=== PATIENT | male | born 1975 | race Caucasian/White ===

== ENCOUNTER 2021-01-24 12:26 | Observation (INO) | payer OTHER ==
[2021-01-24] MEDS ORDERED: KETOROLAC 15 MG/ML 1 ML VIAL IVP STA (13:06)
[2021-01-24] MEDS ORDERED: DIAZEPAM 5 MG/ML 2 ML INJ IVP STA (13:06)
[2021-01-24] MEDS ORDERED: HYDROmorphone 0.5 MG/0.5 ML SYRINGE IVP STA (13:06)
--- NOTE | 2021-01-24 13:23 | ED ---
General Adult HPI - General Chief complaint: Back Pain/Injury Stated complaint: low back, leg pain Time Seen by Provider: 01/24/21 12:53 Source: patient, RN notes reviewed, old records reviewed Mode of arrival: ambulatory Limitations: no limitations - History of Present Illness Initial comments: 45-year-old male presents for evaluation of low back pain and bilateral leg pain and numbness. Patient had previous history of spinal surgery he believes in 2008 at outside hospital. He states that while at work on Saturday he had twisted to move apart and felt a sudden pop in his back with numbness down both legs. This has worsened over the weekend. He was seen at an outside hospital and reportedly had CT of the lumbar spine. He was told to follow with his primary care physician but has been unable to ambulate secondary to pain. He's developed a burning sensation on his inner thighs. He denies bowel or bladder incontinence. Denies fever. - Related Data Home Medications Medication Instructions Recorded Confirmed Naproxen 500 mg PO Q12H PRN 01/24/21 01/24/21 methocarbamoL [Robaxin] 500 mg PO Q12H PRN 01/24/21 01/24/21 methylPREDNISolone [Medrol Dose See Taper PO DAILY 01/24/21 01/24/21 Pack] Allergies Allergy/AdvReac Type Severity Reaction Status Date / Time No Known Allergies Allergy Verified 01/24/21 14:13 Review of Systems ROS Statement: Those systems with pertinent positive or pertinent negative responses have been documented in the HPI. ROS Other: All systems not noted in ROS Statement are negative. Past Medical History Additional Past Medical History / Comment(s): factor 5 History of Any Multi-Drug Resistant Organisms: None Reported Past Surgical History: Hernia Repair Additional Past Surgical History / Comment(s): back surgery 2011, left knee surgery. Smoking Status: Current every day smoker Past Alcohol Use History: Occasional Past Drug Use History: None Reported General Exam Limitations: no limitations General appearance: alert, in no apparent distress Head exam: Present: atraumatic, normocephalic Eye exam: Present: normal appearance ENT exam: Present: normal exam Neck exam: Present: normal inspection. Absent: tenderness, meningismus Respiratory exam: Present: normal lung sounds bilaterally. Absent: respiratory distress Cardiovascular Exam: Present: regular rate, normal rhythm GI/Abdominal exam: Present: soft. Absent: distended, tenderness Extremities exam: Present: normal inspection, normal capillary refill. Absent: pedal edema Neurological exam: Present: alert, oriented X3, CN II-XII intact, other (Bilateral lower extremity pain with any movement.) Psychiatric exam: Present: normal affect, normal mood Skin exam: Present: warm, dry, intact. Absent: cyanosis, diaphoretic Course Vital Signs 01/24/21 12:42 Temperature 97.9 F Pulse Rate 74 Respiratory 19 Rate Blood Pressure 166/65 O2 Sat by Pulse 97 Oximetry - Reevaluation(s) Reevaluation #1: 01/24/21 13:23 Records are being requested from [facility]. Reevaluation #2: 01/24/21 14:27 Postvoid residual pending. Medical Decision Making - Medical Decision Making 45-year-old male presenting for reevaluation of low back pain, radiating symptoms into both legs. No bowel or bladder incontinence. Symptoms have been present for the last 5 days. He was seen at an outside hospital and had CT imaging of the spine. His symptoms persist and despite medication he is not improving. He is having numbness in both legs. Outside hospital had recommended MRI for this patient is been unable to see a primary care physician or orthopedic surgeon. Given the worsening symptoms he will be admitted for both pain control, orthopedic evaluation and MRI of the lumbar spine. This has been ordered. I discussed case with the admitting physician Dr. Solomon - Lab Data Result diagrams: 01/24/21 13:44 01/24/21 13:44 Lab Results 01/24/21 01/24/21 Range/Units 13:44 13:44 WBC 10.8 H (3.8-10.6) k/uL RBC 4.84 (4.30-5.90) m/uL Hgb 15.0 (13.0-17.5) gm/dL Hct 45.1 (39.0-53.0) % MCV 93.3 (80.0-100.0) fL MCH 30.9 (25.0-35.0) pg MCHC 33.2 (31.0-37.0) g/dL RDW 13.0 (11.5-15.5) % Plt Count 311 (150-450) k/uL MPV 7.7 Neutrophils % 66 % Lymphocytes % 22 % Monocytes % 7 % Eosinophils % 2 % Basophils % 0 % Neutrophils # 7.1 (1.3-7.7) k/uL Lymphocytes # 2.4 (1.0-4.8) k/uL Monocytes # 0.8 (0-1.0) k/uL Eosinophils # 0.2 (0-0.7) k/uL Basophils # 0.1 (0-0.2) k/uL Sodium 137 (137-145) mmol/L Potassium 4.7 (3.5-5.1) mmol/L Chloride 109 H (98-107) mmol/L Carbon Dioxide 17 L (22-30) mmol/L Anion Gap 11 mmol/L BUN 11 (9-20) mg/dL Creatinine 0.68 (0.66-1.25) mg/dL Est GFR (CKD-EPI)AfAm >90 (>60 ml/min/1.73 sqM) Est GFR (CKD-EPI)NonAf >90 (>60 ml/min/1.73 sqM) Glucose 99 (74-99) mg/dL Calcium 9.4 (8.4-10.2) mg/dL Total Bilirubin 0.5 (0.2-1.3) mg/dL AST 22 (17-59) U/L ALT 22 (4-49) U/L Alkaline Phosphatase 45 (38-126) U/L Total Protein 7.3 (6.3-8.2) g/dL Albumin 4.4 (3.5-5.0) g/dL Disposition Clinical Impression: Mechanical back pain, Lumbar radiculopathy Narrative: Rule out Disposition: ADMITTED IP TO THIS [facility] Condition: Stable Is patient prescribed a controlled substance at d/c from ED?: No Referrals: None,Stated [Primary Care Provider] - 1-2 days Decision to Admit Reason: Admit from EC Decision Date: 01/24/21 Decision Time: 14:29
[2021-01-24 14:20] LABS: Basophils # (A) 0.1 k/uL (0-0.2); Basophils % (A) 0 %; Eosinophils # (A) 0.2 k/uL (0-0.7); Eosinophils % (A) 2 %; HCT 45.1 % (39.0-53.0); Lymphocytes # (A) 2.4 k/uL (1.0-4.8); Lymphocytes % (A) 22 %; MCH 30.9 pg (25.0-35.0); MCHC 33.2 g/dL (31.0-37.0); MCV 93.3 fL (80.0-100.0); Mean Platelet Volume 7.7; Monocytes # (A) 0.8 k/uL (0-1.0); Monocytes % (A) 7 %; Neutrophils # (A) 7.1 k/uL (1.3-7.7); Neutrophils % (A) 66 %; Platelet Count 311 k/uL (150-450); RBC 4.84 m/uL (4.30-5.90); WBC 10.8 k/uL (3.8-10.6)
[2021-01-24] MEDS ORDERED: DEXAMETHASONE SOD PHOSPHATE 10 MG/ML 1 ML VIAL IV STA (14:23)
[2021-01-24] MEDS ORDERED: NALOXONE 0.4 MG/ML 1 ML VIAL IV PRN (14:24)
[2021-01-24 14:26] LABS: ALT 22 U/L (4-49); AST 22 U/L (17-59); African American GFR (CKD) >90 (>60 ml/min/1.73 sqM); Albumin 4.4 g/dL (3.5-5.0); Alkaline Phosphatase 45 U/L (38-126); Anion Gap 11 mmol/L; Blood Urea Nitrogen 11 mg/dL (9-20); Calcium 9.4 mg/dL (8.4-10.2); Carbon Dioxide 17 mmol/L (22-30); Chloride 109 mmol/L (98-107); Glucose 99 mg/dL (74-99); Non-African American GFR(CKD) >90 (>60 ml/min/1.73 sqM); Potassium 4.7 mmol/L (3.5-5.1); Sodium 137 mmol/L (137-145); Total Bilirubin 0.5 mg/dL (0.2-1.3); Total Protein 7.3 g/dL (6.3-8.2)
[2021-01-24] MEDS: IBUPROFEN 400 MG TAB PO PRN (14:34)
[2021-01-24] MEDS: ACETAMINOPHEN TAB 325 MG TAB PO PRN (14:34)
[2021-01-24 14:46] LABS: Appearance,Urine Clear (Clear); Bilirubin,Urine Negative (Negative); Blood,Urine Negative (Negative); Color,Urine Light Yellow; Glucose,Urine (UA) Negative (Negative); Ketones,Urine Negative (Negative); Leukocyte Esterase,Urine Negative (Negative); Nitrite,Urine Negative (Negative); PH, Urine 5.5 (5.0-8.0); Protein,Urine Negative (Negative); Specific Gravity,Urine 1.006 (1.001-1.035); Urobilinogen,Urine <2.0 mg/dL (<2.0)
[2021-01-24] MEDS: HYDROmorphone 0.5 MG/0.5 ML SYRINGE IVP PRN ×2 (16:54→19:57)
--- NOTE | 2021-01-24 19:19 | P.HPIM ---
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 The patient reports that he was in his usual state of health until this past Saturday when while at work he tried to move something and felt a pop in his lower back with immediate bilateral lower extremity weakness. He reported that the weakness was worse on the right side and mild on the left. He subsequently went home and tried to rest over the weekend but reports that his weakness did not improve much, and that he developed lower back pain which is now radiating down into both of his mid-thigh, burning in nature. He denied difficulty urinating or passing bowel movement. He reports that the lower back pain is currently out of 6 out of 10 at rest and gets worse with movement. Review of systems: Pertinent positives and negatives as discussed in HPI, a complete review of sys tems was performed and all other systems are negative. Physical examination: General: non toxic, no distress, appears at stated age, obese Derm: no unusual rashes/lesions no unusual ecchymoses, warm, dry Head: atraumatic, normocephalic, symmetric Eyes: EOMI, no lid lag, anicteric sclera, pupils equal round reactive to light ENT: Nose and ears atraumatic, no thrush, no pharyngeal erythema Neck: No thyromegaly, no cervical lymphadenopathy, trachea midline, supple Mouth: no lip lesion, mucus membranes moist Cardiovascular: S1S2 reg, no murmur, positive posterior tibial pulse bilateral, no edema, capillary refill less than 2 seconds Lungs: CTA bilateral, no rhonchi, no rales , no accessory muscle use Abdominal: soft, nontender to palpation, no guarding, no appreciable organomegaly, normal bowel sounds Ext: no gross muscle atrophy, muscle strength 3 out of 5 of RLE and 4/5 of LLE, 5/5 in brenden UEs, no contractures, lumbar spinal tenderness noted Neuro: CN II-XI grossly intact, diminished light touch of RLE with intact else- where, finger to nose within normal limits, Psych: Alert, oriented, appropriate affect Assessment/plan Lower back pain, likely acutely herniated disc -MRI results pending -Orthospine consulted -Strict bedrest -Status post Decadron -Pain control DVT prophylaxis -IPCDs The patient is admitted with an anticipated less than 2 midnight stay for evaluation of lower back pain CODE STATUS: Full Code Discussed with: Patient Anticipated discharge date: in am Anticipated discharge place: Home Past Medical History Additional Past Medical History / Comment(s): factor 5 - History of Any Multi-Drug Resistant Organisms: None Reported Past Surgical History: Hernia Repair Additional Past Surgical History / Comment(s): back surgery 2010, left knee betancourt rgery. Past Anesthesia/Blood Transfusion Reactions: No Reported Reaction Smoking Status: Former smoker - Past Family History Mother Family Medical History: Cancer Additional Family Medical History / Comment(s): throat cancer Father Family Medical History: Cancer Additional Family Medical History / Comment(s): throat cancer Medications and Allergies Home Medications Medication Instructions Recorded Confirmed Type Naproxen 500 mg PO Q12H PRN 01/24/21 01/24/21 History methocarbamoL [Robaxin] 500 mg PO Q12H PRN 01/24/21 01/24/21 History methylPREDNISolone [Medrol Dose See Taper PO DAILY 01/24/21 01/24/21 History Pack] Allergies Allergy/AdvReac Type Severity Reaction Status Date / Time No Known Allergies Allergy Verified 01/24/21 14:13 Physical Exam Vitals: Vital Signs Temp Pulse Pulse Resp BP BP Pulse Ox 01/24/21 16:00 17 01/24/21 15:58 98.1 F 58 L 17 119/79 97 01/24/21 12:42 97.9 F 74 19 166/65 97 Intake and Output 01/24/21 01/24/21 01/24/21 06:59 14:59 22:59 Output Total 66 Balance -66 Output: Post Void Residual 66 Other: Weight 94.801 kg 94.801 kg Results CBC & Chem 7: 01/24/21 13:44 01/24/21 13:44 Labs: Abnormal Lab Results - Last 24 Hours (Table) 01/24/21 01/24/21 Range/Units 13:44 13:44 WBC 10.8 H (3.8-10.6) k/uL Chloride 109 H (98-107) mmol/L Carbon Dioxide 17 L (22-30) mmol/L Thrombosis Risk Factor Assmnt - Choose All That Apply Each Factor Represents 1 point: Age 41-60 years, Medical pt on bed rest, Obesity (BMI >25) Other Risk Factors: Yes Each Risk Factor Represents 3 Points: Positive Factor V Leiden Other congenital or acquired thrombophilia - If yes, enter type in comment: No Thrombosis Risk Factor Assessment Total Risk Factor Score: 6 Thrombosis Risk Factor Assessment Level: High Risk
--- NOTE | 2021-01-24 19:35 | MR ---
EXAMINATION TYPE: MR lumbar spine wo con DATE OF EXAM: 01/24/2021 COMPARISON: None HISTORY: Low back pain, rule out cord compression Multiplanar multiecho imaging of the lumbar spine without contrast. There is metal artifact from posterior fusion surgery at L5-S1. There is a few millimeter subluxation of L5 in relation to S1. There is no compression fracture. Lumbar disc spaces are fairly normal. The re is no evidence of any significant spinal stenosis. There is no lumbar paraspinal mass. There is sm all posterior disc bulging at L2-3. There is similar bulging at T12-L1. There is developmentally adeq uate spinal canal. No spinal stenosis. There is some narrowing of the lumbar neural foramina bilatera lly at L4-5 and L5-S1 due to facet arthropathy. IMPRESSION: Posterior fusion surgery. Minimal L5-S1 spondylolisthesis. No spinal stenosis. Normal neural foramina l narrowing bilaterally as above.
[2021-01-25] MEDS ORDERED: ASPIRIN 81 MG PO STA (00:20)
[2021-01-25] MEDS: NITROGLYCERIN SL TABS 0.4 MG TAB SUBLINGUAL PRN ×2 (00:35→00:42)
--- NOTE | 2021-01-25 01:01 | P.PN ---
Progress Note - Text Progress Note Date: 01/25/21 patient woke up from sleep complaining of sudden onset chest pain , centrl pressure, radiate to right side. worse with breathing, feeling anxious , no dizziness, palpitations or diaphoresis lungs clear to auscultation heart normal S1 S2 no leg edema BP 180s systolic hr 90s patient quit smoking 2 months ago, denies heavy alcohol , does smoke marijuana occasionally reports positive family history of premature CAD in his father denies any personal cardiac history plan rule out ACS EKG normal sinus rhythm , no acute ST changes, q wave in lead I check trops q3hr nitro sl aspirin 325 monitor vital signs PRN clonidine 0.2 mg for SBP >180
[2021-01-25] MEDS ORDERED: cloNIDine HCL 0.2 MG TAB PO PRN (01:08)
[2021-01-25] MEDS: HYDROmorphone 0.5 MG/0.5 ML SYRINGE IVP PRN ×6 (02:00→23:41)
[2021-01-25] MEDS ORDERED: ASPIRIN 325 MG TAB PO SCH (09:00)
--- NOTE | 2021-01-25 10:37 | P.CRDCN ---
History of Present Illness Consult date: 01/25/21 History of present illness: HISTORY OF PRESENT ILLNESS: This is a 45-year-old male with a past medical history significant for factor V Leiden (not on blood thinners due to cost per patient), degenerative disc disease with previous fusion, nicotine dependence, and marijuana use. Patient does not follow with a laboratory chief. We have been asked to see the patient in consultation for chest pain. Patient examined at the bedside. The patient states he was at work when he bent over at a machine and felt something in his back pop. He states his right leg went numb afterwords and he has decreased mobility of his right leg. The patient states he woke up in the middle of the night with right sided chest pain. Denies SOB. Denies radiation of the pain. The pain was somewhat worse with deep inspiration and chest wall palpation. The patient currently denies chest pain or pressure. He reports a family history of coronary artery disease and states his dad had a heart attack when he was in his 30s or 40s. EKG reveals sinus mechanism with nonspecific ST-T wave changes Laboratory data: WBC 10.8. Hemoglobin 15.0. Platelet count 311. Sodium 137. Potassium 4.7. BUN 11. Creatinine 0.68. Troponin negative 3. Current home cardiac medications include none REVIEW OF SYSTEMS: At the time of my exam: CONSTITUTIONAL: Denies fever or chills. HEENT: Denies blurred vision, vision changes, or eye pain. Denies hemoptysis CARDIOVASCULAR: Denies chest pain. Denies orthopnea. Denies PND. Denies palpitations RESPIRATORY: Denies shortness of breath. GASTROINTESTINAL: Denies abdominal pain. Denies nausea or vomiting. HEMATOLOGIC: Denies bleeding disorders. GENITOURINARY: Denies any blood in urine. SKIN: Denies pruitis. Denies rash. PHYSICAL EXAM: VITAL SIGNS: Reviewed. GENERAL: Well-developed in no acute distress. HEENT: Head is normocephalic. Pupils are equal, round. Sclerae anicteric. Mucous membranes of the mouth are moist. Neck supple. No JVD or thyromegaly LUNGS: Respirations even and unlabored. Lungs essentially clear to auscultation bilaterally. HEART: Regular rate and rhythm. S1 and S2 heard. ABDOMEN: Soft. Nondistended. Nontender. EXTREMITIES: Decreased range of motion of right lower extremity. No clubbing or cyanosis. Peripheral pulses intact. No lower extremity edema NEUROLOGIC: Awake and alert. Oriented x 3. ASSESSMENT: Back pain with numbness and decreased range of motion to lower extremities Chest pain, atypical, troponin negative 3 Factor V Leyden deficiency, not on blood thinners due to cost per patient Degenerative disc disease with previous fusion Nicotine dependence Marijuana use PLAN: An acute coronary event has been ruled out Obtain 2-D echo to assess cardiac structure and function Await orthopedic evaluation Recommend outpatient stress test Recommend abstinence from marijuana and nicotine Further recommendations pending patient's course Nurse practitioner note has been reviewed by physician. Signing provider agrees with the documented findings, assessment, and plan of care. Past Medical History Additional Past Medical History / Comment(s): factor 5 - History of Any Multi-Drug Resistant Organisms: None Reported Past Surgical History: Hernia Repair Additional Past Surgical History / Comment(s): back surgery 2010, left knee surgery. Past Anesthesia/Blood Transfusion Reactions: No Reported Reaction Smoking Status: Former smoker - Past Family History Mother Family Medical History: Cancer Additional Family Medical History / Comment(s): throat cancer Father Family Medical History: Cancer Additional Family Medical History / Comment(s): throat cancer Medications and Allergies Home Medications Medication Instructions Recorded Confirmed Type Naproxen 500 mg PO Q12H PRN 01/24/21 01/24/21 History methocarbamoL [Robaxin] 500 mg PO Q12H PRN 01/24/21 01/24/21 History methylPREDNISolone [Medrol Dose See Taper PO DAILY 01/24/21 01/24/21 History Pack] Allergies Allergy/AdvReac Type Severity Reaction Status Date / Time No Known Allergies Allergy Verified 01/24/21 14:13 Physical Exam Vitals: Vital Signs Temp Pulse Pulse Resp BP BP BP 01/25/21 08:06 96.4 F L 62 18 137/79 01/25/21 08:00 18 01/25/21 01:37 16 01/25/21 00:07 98.0 F 68 20 185/76 01/24/21 19:37 98.5 F 64 16 158/77 01/24/21 16:00 17 01/24/21 15:58 98.1 F 58 L 17 119/79 01/24/21 12:42 97.9 F 74 19 166/65 Pulse Ox 01/25/21 08:06 96 01/25/21 08:00 01/25/21 01:37 01/25/21 00:07 96 01/24/21 19:37 97 01/24/21 16:00 01/24/21 15:58 97 01/24/21 12:42 97 Intake and Output 01/24/21 01/25/21 01/25/21 22:59 06:59 14:59 Intake Total 180 Output Total 316 Balance -136 Intake: Oral 180 Output: Urine 250 Post Void Residual 66 Other: Voiding Method Urinal # Voids 1 2 Weight 94.801 kg Results 01/24/21 13:44 01/24/21 13:44 Cardiac Enzymes 01/24/21 01/25/21 01/25/21 Range/Units 13:44 00:35 03:45 AST 22 (17-59) U/L Troponin I <0.012 <0.012 (0.000-0.034) ng/mL 01/25/21 Range/Units 06:52 AST (17-59) U/L Troponin I <0.012 (0.000-0.034) ng/mL Coagulation 01/24/21 Range/Units 13:44 APTT 22.8 (22.0-30.0) sec CBC 01/24/21 Range/Units 13:44 WBC 10.8 H (3.8-10.6) k/uL RBC 4.84 (4.30-5.90) m/uL Hgb 15.0 (13.0-17.5) gm/dL Hct 45.1 (39.0-53.0) % Plt Count 311 (150-450) k/uL Comprehensive Metabolic Panel 01/24/21 Range/Units 13:44 Sodium 137 (137-145) mmol/L Potassium 4.7 (3.5-5.1) mmol/L Chloride 109 H (98-107) mmol/L Carbon Dioxide 17 L (22-30) mmol/L BUN 11 (9-20) mg/dL Creatinine 0.68 (0.66-1.25) mg/dL Glucose 99 (74-99) mg/dL Calcium 9.4 (8.4-10.2) mg/dL AST 22 (17-59) U/L ALT 22 (4-49) U/L Alkaline Phosphatase 45 (38-126) U/L Total Protein 7.3 (6.3-8.2) g/dL Albumin 4.4 (3.5-5.0) g/dL Current Medications Generic Name Dose Route Start Last Admin Trade Name Freq PRN Reason Stop Dose Admin Acetaminophen 650 mg 01/24/21 14:24 01/24/21 14:34 Acetaminophen Tab 325 Mg Tab PO 650 mg Q6HR PRN Administration Mild Pain or Fever > 100.5 Aspirin 81 mg 01/26/21 09:00 Aspirin 81 Mg PO DAILY ADRIA Clonidine 0.2 mg 01/25/21 01:08 Clonidine Hcl 0.2 Mg Tab PO TID PRN Blood Pressure - High Hydromorphone HCl 0.5 mg 01/24/21 14:24 01/25/21 07:42 Hydromorphone 0.5 Mg/0.5 Ml Syringe IVP 0.5 mg Q3HR PRN Administration Moderate Pain Ibuprofen 600 mg 01/24/21 14:24 01/24/21 14:34 Ibuprofen 400 Mg Tab PO 600 mg Q6HR PRN Administration Mild Pain or Fever > 100.5 Naloxone HCl 0.2 mg 01/24/21 14:24 Naloxone 0.4 Mg/Ml 1 Ml Vial IV Q2M PRN Opioid Reversal Nitroglycerin 0.4 mg 01/25/21 00:20 01/25/21 00:42 Nitroglycerin Sl Tabs 0.4 Mg Tab SUBLINGUAL 0.4 mg Q5M PRN Administration Chest Pain Intake and Output 01/24/21 01/25/21 01/25/21 22:59 06:59 14:59 Intake Total 180 Output Total 316 Balance -136 Intake: Oral 180 Output: Urine 250 Post Void Residual 66 Other: Voiding Method Urinal # Voids 1 2 Weight 94.801 kg 01/24/21 13:44 01/24/21 13:44
--- NOTE | 2021-01-25 13:36 | P.CNOR ---
History of Present Illness - [facility] Consult date: 01/25/21 Requesting physician: Uri Peacock Consult reason: low back pain History of present illness: Patient is a pleasant 45-year-old male who is seen and examined at bedside for further evaluation of his lumbar spine. He states this past 01/20/2021, he states he was performing his regular job when he was lifting some plastic and rotating when he got a sharp pain in his lumbar spine. He states since that time his symptoms have continued to worsen. He does get some generalized numbness in the lower extremities. His back pain is significant. He states he does have some ongoing intermittent pain that radiates into the right buttock, towards the right groin and anterior thigh to the right knee. He states he has a history of multiple surgical interventions at his left knee so he bears more weight on the right to compensate. He states this may be exacerbating some of his right lower extremity pain. He is known have previously undergone an L5-S1 lumbar fusion performed in 2008. He had been living in [place] from [id number] and recently moved to [place] in August 2020. He has not been following with pain management here in town. He states he was previously on disability but was able to come off of disability and resume working. He states he does have intermittent flares of back pain. He states currently his back pain is exacerbated with lifting his lower extremities. His pain is most significant near his right lower lumbar surgical site. He currently denies any lower extremity weakness bilaterally. He is eating and voiding without difficulty. He was able to have a bowel movement today. He is admitted and medicine. He has been consulted on by cardiology as well for evaluation of chest pain. Patient does have a history of factor V Leiden. Prior to my examination he has had MRI imaging of his lumbar spine. Patient does feel his pain has been better controlled during his admission. He was receiving dexamethasone which has been discontinued. He is currently on Dilaudid and ibuprofen for pain control. Past Medical History Additional Past Medical History / Comment(s): factor 5 - History of Any Multi-Drug Resistant Organisms: None Reported Past Surgical History: Hernia Repair Additional Past Surgical History / Comment(s): back surgery 2010, left knee surgery. Past Anesthesia/Blood Transfusion Reactions: No Reported Reaction Smoking Status: Former smoker - Past Family History Mother Family Medical History: Cancer Additional Family Medical History / Comment(s): throat cancer Father Family Medical History: Cancer Additional Family Medical History / Comment(s): throat cancer Medications and Allergies Home Medications Medication Instructions Recorded Confirmed Type Naproxen 500 mg PO Q12H PRN 01/24/21 01/24/21 History methocarbamoL [Robaxin] 500 mg PO Q12H PRN 01/24/21 01/24/21 History methylPREDNISolone [Medrol Dose See Taper PO DAILY 01/24/21 01/24/21 History Pack] Allergies Allergy/AdvReac Type Severity Reaction Status Date / Time No Known Allergies Allergy Verified 01/24/21 14:13 Physical Examination Physical exam: Patient is awake, alert, and oriented 3 Vital signs stable Good chest excursion with deep inspiration and expiration Abdomen soft nontender Examination of lumbar spine reveals skin is intact with no abrasions, lacerations, or bruises; no erythema, purulence or signs of infection Evidence of 2 well-healed incisions over the paraspinal muscles one on each side of the lower lumbar spine Increased low back pain with rolling over in bed Dorsiflexion, plantarflexion, and extensor hallucis longus positive sustained bilaterally Lower extremity strength 5/5 bilaterally with some difficulty with full range of motion of the left knee Evidence of multiple well-healed surgical incisions over the left knee Evidence of some deformity of the left knee Lasegue's test exacerbates low back pain No signs or symptoms of DVT; no calf pain No pain with internal and external rotation of the hips bilaterally Neurovascularly intact Results Pertinent studies: MRI of the lumbar spine taken on 01/24/2021: Metal artifact from posterior fusion surgery at L5-S1; L5-S1 slight spondylolisthesis; no evidence of significant spinal canal stenosis throughout the lumbar spine; no compression fracture deformity; lumbar disc space appears to be fairly well maintained; small posterior disc bulging L2-3; L4-5 and L5-S1 facet arthropathy resulting in some neural foraminal narrowing bilaterally - Labs Labs: Abnormal Lab Results - Last 24 Hours (Table) 01/24/21 01/24/21 Range/Units 13:44 13:44 WBC 10.8 H (3.8-10.6) k/uL Chloride 109 H (98-107) mmol/L Carbon Dioxide 17 L (22-30) mmol/L H & H 01/24/21 Range/Units 13:44 Hgb 15.0 (13.0-17.5) gm/dL Hct 45.1 (39.0-53.0) % Result Diagrams: 01/24/21 13:44 01/24/21 13:44 Assessment and Plan Assessment: Assessment: Acute on chronic low back pain Myofascial strain Generalized lower extremity numbness Right lower extremity radiculopathy History L5-S1 lumbar fusion L4-5 and L5-S1 facet arthropathy L5-S1 spondylolisthesis History of multiple surgeries at the left knee History of factor V Leiden Nicotine dependence Marijuana use (1) Acute exacerbation of chronic low back pain Current Visit: Yes Status: Acute Code(s): M54.50 - ; G89.29 - OTHER CHRONIC PAIN SNOMED Code(s): 914857060 (2) History of lumbar spinal fusion Current Visit: Yes Status: Acute Code(s): Z98.1 - ARTHRODESIS STATUS SNOMED Code(s): 61425506894320 (3) Lumbar back pain with radiculopathy affecting right lower extremity Current Visit: Yes Status: Acute Code(s): M54.16 - RADICULOPATHY, LUMBAR REGION SNOMED Code(s): 786452085 (4) Numbness and tingling Current Visit: Yes Status: Acute Code(s): R20.0 - ANESTHESIA OF SKIN; R20.2 - PARESTHESIA OF SKIN SNOMED Code(s): 082823258369 (5) Acute myofascial strain of lumbar region Current Visit: Yes Status: Acute Code(s): S39.012A - STRAIN OF MUSCLE, FASCIA AND TENDON OF LOWER BACK, INIT SNOMED Code(s): 860610809 (6) Lumbar facet arthropathy Current Visit: Yes Status: Acute Code(s): M47.816 - SPONDYLOSIS W/O MYELOPATHY OR RADICULOPATHY, LUMBAR REGION SNOMED Code(s): 089472762 (7) Facet arthropathy, lumbosacral Current Visit: Yes Status: Acute Code(s): M47.817 - SPONDYLS W/O MYELOPATHY OR RADICULOPATHY, LUMBOSACR REGION SNOMED Code(s): 815556159 (8) Spondylolisthesis, lumbosacral region Current Visit: Yes Status: Acute Code(s): M43.17 - SPONDYLOLISTHESIS, LUMBOSACRAL REGION SNOMED Code(s): 442372057 (9) Factor V Leiden Current Visit: Yes Status: Acute Code(s): D68.51 - ACTIVATED PROTEIN C RESISTANCE SNOMED Code(s): 916321800 (10) Nicotine dependence Current Visit: Yes Status: Acute Code(s): F17.200 - NICOTINE DEPENDENCE, UNSPECIFIED, UNCOMPLICATED SNOMED Code(s): 91463762 (11) Marijuana use Current Visit: Yes Status: Acute Code(s): F12.90 - CANNABIS USE, UNSPECIFIED, UNCOMPLICATED SNOMED Code(s): 755056170 (12) History of left knee surgery Current Visit: Yes Status: Acute Code(s): Z98.890 - OTHER SPECIFIED POSTPROCEDURAL STATES SNOMED Code(s): 828289784 Plan: Plan: 1. MRI imaging has been reviewed by myself and Dr. Giuseppe Pierson. Patient does have a history of previous lumbar fusion at L5-S1 performed in 2008. Recent MRI imaging does not show any evidence of significant herniated nucleus pulposus, canal stenosis, or compression fracture deformity. He does not do some chronic low back pain which has been exacerbated while at work on 01/20/2021. Since that time he has had worsening right-sided low back pain. States he does have generalized numbness down the lower extremities which is intermittent. He also has some chronic right lower extremity radiculopathy which can be intermittent with pain radiating into the right buttock, right groin, anterior thigh to the knee. Patient had lived in [place] and recently moved to [place]. He has not followed with pain management since his return to [place]. He has had some i mprovement of his symptoms during his admission to the hospital. We did discuss he could benefit with pain management consultation while he is in the hospital. We will plan for consultation with pain management. We discussed his MRI results in detail. We are not currently planning for surgical intervention in regards to his lumbar spine as we do not have indications in which surgical intervention would provide any significant improvement of his symptoms. Patient states he wishes to work through all conservative treatment options and would like to avoid any further surgical intervention. He was previously prescribed dexamethasone during his admission to the hospital. I did discuss with the patient he could benefit from a steroid taper in the outpatient setting if medicine felt this is appropriate. We're not currently plan to prescribe medications for this patient at time of discharge. We'll plan to have him follow up on an as-needed basis as we are not planning for any surgical intervention. Patient feels this is a good plan of care. From orthopedic spine standpoint, patient is clear for discharge. 2. Consultation will be placed for pain management 3. Patient will continue be seen again by other medical providers including medicine and cardiology. Time with Patient: Greater than 30 (Including obtaining history, physical examination, reviewing of imaging, and dictation.)
[2021-01-25] MEDS: IBUPROFEN 400 MG TAB PO PRN (15:10)
--- NOTE | 2021-01-25 16:05 | P.PN ---
Subjective Progress Note Date: 01/25/21 The patient is a 45-year-old male with a PMH of Factor V Leiden and lumbar DJD status post fusion 10 years ago who now presents to the emergency room with complaints of lower back pain radiating down to his legs. The patient reports that he was in his usual state of health until this past Saturday when while at work he tried to move something and felt a pop in his lower back with immediate bilateral lower extremity weakness. He reported that the weakness was worse on the right side and mild on the left. He subsequently went home and tried to rest over the weekend but reports that his weakness did not improve much, and that he developed lower back pain which is radiating down into both of his mid- thigh, burning in nature. He denied difficulty urinating or passing bowel movement. MRI of the lumbar spine was ordered and reviewed which revealed no new herniated disks or neuronal foraminal narrowing. Overnight, the patient also had an episode of chest discomfort, 8 out of 10, sharp and pressure-like, located in the upper chest, radiating back with no alleviating or exacerbating features, somewhat pleuritic. EKG was reviewed and echocardiogram was performed. Cardiology was also consulted. Today, the patient reports that his chest pain has resolved but he continues to have lower back pain and weakness of the lower extremities, albeit improved from yesterday. Reports the pain is now 4 out of 10 of the lower back. Review of systems: Pertinent positives and negatives as discussed in HPI, a complete review of systems was performed and all other systems are negative. Physical examination: General: non toxic, no distress, appears at stated age, obese Derm: no unusual rashes/lesions no unusual ecchymoses, warm, dry Head: atraumatic, normocephalic, symmetric Eyes: EOMI, no lid lag, anicteric sclera, pupils equal round reactive to light ENT: Nose and ears atraumatic, no thrush, no pharyngeal erythema Neck: No thyromegaly, no cervical lymphadenopathy, trachea midline, supple Mouth: no lip lesion, mucus membranes moist Cardiovascular: S1S2 reg, no murmur, positive posterior tibial pulse bilateral, no edema, capillary refill less than 2 seconds Lungs: CTA bilateral, no rhonchi, no rales , no accessory muscle use Abdominal: soft, nontender to palpation, no guarding, no appreciable organomegaly, normal bowel sounds Ext: no gross muscle atrophy, muscle strength 4 out of 5 of RLE and 4+/5 of LLE, 5/5 in brenden UEs, no contractures, lumbar spinal tenderness noted Neuro: CN II-XI grossly intact, diminished light touch of RLE with intact else- where, finger to nose within normal limits, Psych: Alert, oriented, appropriate affect Assessment/plan Lumbar radiculopathy with acute exacerbation -MRI results reviewed -Orthospine recommendations appreciated -Strict bedrest -Status post Decadron -Pain management consulted. Plans for discharge in a.m. following consult. Chest pain -Cardiology recommendations appreciated -Outpatient stress test recommended DVT prophylaxis -IPCDs The patient is admitted with an anticipated less than 2 midnight stay for evaluation of lower back pain CODE STATUS: Full Code Discussed with: Patient Anticipated discharge date: in am Anticipated discharge place: Home Objective - Vital Signs Vital signs: Vital Signs Temp 98.4 F 01/25/21 13:50 Pulse 63 01/25/21 15:12 Resp 18 01/25/21 15:12 BP 125/70 01/25/21 13:50 Pulse Ox 96 01/25/21 08:06 Intake & Output 01/24/21 01/25/21 01/25/21 18:59 06:59 18:59 Intake Total 180 Output Total 66 250 300 Balance 114 -250 -300 Weight 94.801 kg Intake: Oral 180 Output: Urine 250 300 Post Void Residual 66 Other: Voiding Method Urinal # Voids 2 - Labs CBC & Chem 7: 01/24/21 13:44 01/24/21 13:44
[2021-01-25] MEDS: ACETAMINOPHEN TAB 325 MG TAB PO PRN (23:40)
[2021-01-26] MEDS: HYDROmorphone 0.5 MG/0.5 ML SYRINGE IVP PRN (06:25)
[2021-01-26] MEDS: ACETAMINOPHEN TAB 325 MG TAB PO PRN (06:27)
[2021-01-26] MEDS ORDERED: HYDROcodone/APAP 5-325MG 1 EACH TAB PO PRN (08:33)
[2021-01-26] MEDS ORDERED: HYDROmorphone 0.5 MG/0.5 ML SYRINGE IVP PRN (08:34)
[2021-01-26] MEDS ORDERED: ASPIRIN 81 MG PO SCH (09:00)
--- NOTE | 2021-01-26 09:23 | P.PAINCN ---
History of Present Illness - Reason for Consult Consult date: 01/26/21 - History of Present Illness This is 45 years old male with chronic history of low back pain, she had lumbar laminectomy and fusion surgery more than 10 years ago , and he continued to have ongoing low back pain after the surgery, patient with acute exacerbation of the low back pain, and currently the pain is radiating to the right lower extremity associated with numbness and tingling sensation mainly on the right side, and he feels some weakness in his right lower extremity, he denies any lumbar or night sweats he denies any change in the bowel movement or urination, patient reported that the pain is constant and increases with any movement, she failed medication management, NSAID , muscles relaxant, opioid (NORCO ) Past Medical History Additional Past Medical History / Comment(s): factor 5 - History of Any Multi-Drug Resistant Organisms: None Reported Past Surgical History: Hernia Repair Additional Past Surgical History / Comment(s): back surgery 2010, left knee surgery. Past Anesthesia/Blood Transfusion Reactions: No Reported Reaction Smoking Status: Former smoker - Past Family History Mother Family Medical History: Cancer Additional Family Medical History / Comment(s): throat cancer Father Family Medical History: Cancer Additional Family Medical History / Comment(s): throat cancer Medications and Allergies Home Medications Medication Instructions Recorded Confirmed Type Naproxen 500 mg PO Q12H PRN 01/24/21 01/24/21 History methocarbamoL [Robaxin] 500 mg PO Q12H PRN 01/24/21 01/24/21 History methylPREDNISolone [Medrol Dose See Taper PO DAILY 01/24/21 01/24/21 History Pack] Allergies Allergy/AdvReac Type Severity Reaction Status Date / Time No Known Allergies Allergy Verified 01/24/21 14:13 Physical Exam Vitals: Vital Signs Temp Pulse Resp BP BP Pulse Ox 01/26/21 07:30 98 F 57 L 15 128/73 97 01/26/21 02:29 97.7 F 57 L 18 131/73 97 01/25/21 19:13 97.6 F 68 20 144/75 01/25/21 16:00 18 01/25/21 15:12 63 18 01/25/21 13:50 98.4 F 63 18 125/70 Intake and Output 01/25/21 01/26/21 01/26/21 22:59 06:59 14:59 Other: Voiding Method Urinal # Voids 1 2 Physical Examinations : -Constitutiona : Cooperative , not in acute distress . -HEENT : nech : supple , no Lymphadenopathy , normal thyroid size . : eyes : no ptosis , no icterus, no photophobia . - neurologic : Cranial nerve II to XII intact , no focal neurological deffecit . -psychatric : alert , oriented X 3 , appropriate affect , intact judgment and insight . -Lymphatic : no Lymphadenopathy . - musculoskeltal : Lumber spine moter stegnth lower extremities ,thigh and legs 4/5 Right side , 5/5 Left side deep tendon reflexes : normal Knee Jerk , normal ankle Jerk lumber facet Loading Test =positive Right , positive Left Range of motion of the lumbar spine Flexion 30 degrees, extension 10 degrees strait leg raising test = positive at 30 degree on the right side . Fabere test= positive Right , and positive LT . tenderness over the Sacroiliac joint on the Right . Results CBC & Chem 7: 01/24/21 13:44 01/24/21 13:44 Comments: L the lumbar spine = previous history of confusion and lumbar spondylosis and lumbar spondylolisthesis and foraminal stenosis Assessment and Plan Plan: Assessment and plan=1- Post laminectomy pain syndrome lumbar area. 2-lumbar radiculopathy. 3-lumbar spondylolisthesis, 4-lumbar spondylosis. he is good candidate to have caudal epidural steroid injection with lysis of epidural adhesions under fluoroscopy guidance Time with Patient: Greater than 30 PQRS Measure Charge Sheet - Pain Location Left Hip Non-Pharmacological Interventions: Position/Reposition Pharmacological Interventions: PRN Medication PQRS Narrative: Blood Pressure [Left Arm] 128/73 Blood Pressure [Right Arm] 125/70 Blood Pressure 166/65 Pain Intensity [Left Hip] 6 Pain Intensity 0 Pain Scale Used Numeric (1 - 10) Scale Used Numeric (1 - 10) Home Medications: Ambulatory Orders Naproxen 500 mg PO Q12H PRN 01/24/21 methocarbamoL [Robaxin] 500 mg PO Q12H PRN 01/24/21 methylPREDNISolone [Medrol Dose Pack] See Taper PO DAILY 01/24/21
[2021-01-26 09:54] VITALS: RESP 16
[2021-01-26] MEDS ORDERED: LACTATED RINGERS 1,000 ML IV ONE (10:00)
[2021-01-26] MEDS ORDERED: IOPAMIDOL M200 10 ML VIAL ONE (10:02)
[2021-01-26] MEDS ORDERED: fentaNYL (PF) 50 MCG/ML 2 ML AMP ONE (10:02)
[2021-01-26] MEDS ORDERED: SODIUM CHLORIDE 0.9% (PF) 10 ML VIAL ONE (10:02)
[2021-01-26] MEDS ORDERED: MIDAZOLAM 2 MG/2 ML VIAL ONE (10:02)
[2021-01-26] MEDS ORDERED: methylPREDNISolone ACETATE 40 MG/ML 1 ML VIAL ONE (10:02)
--- NOTE | 2021-01-26 10:24 | P.PCN ---
Date of Procedure: 01/26/21 Procedure(s) Performed: PREOP DIAGNOSIS: 1- Lumbar postlaminectomy syndrome. 2-lumbar radiculopathy. 3-lumbar spondylolisthesis. 4-lumbar spondylosis POSTOP DIAGNOSIS:same as pre op diagnosis PROCEDURE: 1-Caudal epidural steroid injection with epidurolysis and epidurogram under fluoroscopic guidance. (Fluoroscopy images available in the radiology Department ) 2-caudal epidurogram. ANESTHESIA: Local with 1% lidocaine 3 ml ,and moderate sedation, with Versed 2 mg and fentanyl 100 g. EBL: Minimal. PROCEDURE INDICATION: The patient with post-laminectomy syndrome with low back pain and radiculopathy radiating down in both legs, here for a caudal epidural steroid injection with epidurolysis. PROCEDURE DESCRIPTION: The patient was seen and identified in the preoperative area. Risks, benefits, complications, and alternatives were discussed with the patient. The patient agreed to proceed with the procedure and signed the consent. IV was started, and vital signs were stable. Patient was taken to the OR and time out was completed. The patient was placed in the prone position on procedure table and a pillow was placed under the abdomen to reduce lumbar lordosis. The lumbosacral area was prepped and draped in the usual sterile fashion. Vital signs were closely monitored during the procedure. lateral view and the anterior-posterior plates of the sacrum were identified with infiltration of the area overlying the sacral hiatus with 1% lidocaine .A 17 gauge RK epidural needle was used to advance through the sacral hiatus into the caudal epidural space. Omnipaque 180 dye. 2cc was injected and the position of the needle was verified to be in the midline. A Racz catheter was introduced into the epidural space and was advanced towards the L5-S1 interspace under direct fluoroscopic guidance. Multiple passes were made with the catheter for lysis of epidural adhesions. Depo-Medrol 80 mg with 3ml of preservative free Lidocaine 1% and 5 ml of preservative free normal saline was injected slowly. Additional spread was seen to L4 under fluoroscopy. The needle and the catheter were withdrawn intact. EPIDUROGRAM: Omnipaque 180 mg dye 2 ml was injected with spread of the dye into the caudal epidural space and with spread cutoff at L5 prior to epidurolysis. Post epidurolysis dye 2 ml was injected and spread was seen to L3-4.There was further spread of the solution together with the dye above the L3 COMPLICATIONS: None. DISPOSITION / PLANS: The patient was placed in a supine position and transferred to the recovery area in a stable condition for observation and was discharged from the recovery room after meeting discharge criteria. Home discharge instructions given to the patient by the staff. The patient was reexamined prior to discharge. The patient will schedule a follow up in the clinic in 2-4 weeks.
--- NOTE | 2021-01-26 10:40 | FL ---
EXAMINATION TYPE: FL guided pain mgmt statistic DATE OF EXAM: 01/26/2021 CLINICAL HISTORY: Low back and sacral pain. TECHNIQUE: Fluoroscopy. COMPARISON: None. FINDINGS: Fluoroscopic guidance was provided during pain relief procedure performed by Dr. Sauer . A total of 14 seconds of fluoroscopic time was utilized during the procedure and 3 spot images are acquired. Images acquired shows needle localization at the mid sacrum from posterior inferior appro ach with contrast injection. IMPRESSION: As Above.
--- NOTE | 2021-01-26 11:00 | P.PN ---
Subjective Progress Note Date: 01/26/21 HISTORY OF PRESENT ILLNESS: This is a 45-year-old male with a past medical history significant for factor V Leiden (not on blood thinners due to cost per patient), degenerative disc disease with previous fusion, nicotine dependence, and marijuana use. 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 We have been asked to see the patient in consultation for chest pain. Patient examined at the bedside. The patient states he was at work when he bent over at a machine and felt something in his back pop. He states his right leg went numb afterwords and he has decreased mobility of his right leg. The patient states he woke up in the middle of the night with right sided chest pain. Denies SOB. Denies radiation of the pain. The pain was somewhat worse with deep inspiration and chest wall palpation. The patient currently denies chest pain or pressure. He reports a family history of coronary artery disease and states his dad had a heart attack when he was in his 30s or 40s. EKG reveals sinus mechanism with nonspecific ST-T wave changes Laboratory data: WBC 10.8. Hemoglobin 15.0. Platelet count 311. Sodium 137. Potassium 4.7. BUN 11. Creatinine 0.68. Troponin negative 3. Current home cardiac medications include none 01/26/2021 Patient examined this morning at the bedside. Patient denies chest pain or pressure. Denies shortness of breath. Echo reveals preserved LV systolic function. Vital signs stable. PHYSICAL EXAM: VITAL SIGNS: Reviewed. GENERAL: Well-developed in no acute distress. HEENT: Head is normocephalic. Pupils are equal, round. Sclerae anicteric. Mucous membranes of the mouth are moist. Neck supple. No JVD or thyromegaly LUNGS: Respirations even and unlabored. Lungs essentially clear to auscultation bilaterally. HEART: Regular rate and rhythm. S1 and S2 heard. ABDOMEN: Soft. Nondistended. Nontender. EXTREMITIES: Decreased range of motion of right lower extremity. No clubbing or cyanosis. Peripheral pulses intact. No lower extremity edema NEUROLOGIC: Awake and alert. Oriented x 3. ASSESSMENT: Back pain with numbness and decreased range of motion to lower extremities Chest pain, atypical, troponin negative 3 Factor V Leyden deficiency, not on blood thinners due to cost per patient Degenerative disc disease with previous fusion Nicotine dependence Marijuana use PLAN: Continue current medications Recommend outpatient stress test Recommend abstinence from marijuana and nicotine Patient is stable from a cardiac standpoint He is to follow up outpatient with Dr. Recinos Nurse practitioner note has been reviewed by physician. Signing provider agrees with the documented findings, assessment, and plan of care. Objective - Vital Signs Vital signs: Vital Signs Temp 98 F 01/26/21 07:30 Pulse 56 L 01/26/21 09:52 Resp 16 01/26/21 09:52 BP 145/80 01/26/21 09:52 Pulse Ox 97 01/26/21 09:52 Intake & Output 01/25/21 01/26/21 01/26/21 18:59 06:59 18:59 Intake Total 50 Output Total 700 Balance -700 50 Intake: IV 50 Output: Urine 700 Other: Voiding Method Urinal # Voids 2 - Labs CBC & Chem 7: 01/24/21 13:44 01/24/21 13:44
[2021-01-26 11:05] VITALS: BP 125/80; PULSE 58; TEMP 97.8
[2021-01-26] MEDS ORDERED: MORPHINE SULFATE 4 MG/ML SYRINGE IVP STA (12:49)
--- NOTE | 2021-01-26 21:18 | P.DS ---
Providers Date of admission: 01/24/21 14:24 Expected date of discharge: 01/26/21 Attending physician: Krystal Sauer Consults: 01/24/21 14:25 Consult Physician Routine Consulting Provider: Raad Pierson Consult Reason/Comments: Acute on chronic low back pain. Do you want consulting provider notified?: Yes 01/25/21 13:36 Consult to Anesthesia Routine Consulting Provider: Anesthesia,Services Consult Reason/Comments: Exacerbation of chronic low back pain Primary care physician: Stated None Hospital Course: Discharge Diagnosis: Acute lumbar strain Lumbar postlaminectomy syndrome with radiculopathy Lumbar spondylosis Atypical chest pain Factor V Leiden deficiency Nicotine dependence Marijuana use Hospital Course: The patient is a 45-year-old male with Factor V Leiden and lumbar DJD status post fusion 10 years ago who presents to the emergency room with complaints of lower back pain radiating down to his legs. He also had some chest pain. He underwent an EKG which was unremarkable. Initial laboratory analysis essentially unremarkable. MRI lumbar spine with minimal L5-S1 spondylolysis and exterior fusion surgery. He was seen by spine orthosis who did not recommend any acute surgical intervention at this time. He was seen by cardiology who recommended outpatient stress test for possible chest pain. He was seen by anesthesia pain management and underwent caudal epidural steroid injection with epidural lysis an epidurogram under fluoroscopy guidance. Afterwards he had an acute increase his his pain which responded to morphine. He then had improvement was determined stable for discharge home. Follow-up: Anesthesia pain service is in 2 weeks, cardiology in 2 weeks for outpatient stress test, patient is currently being worked up for Medicaid and plans on following up with her primary care physician what his Medicaid is in place. I did recommend that he stay off of work through 02/06 to ensure adequate pain control. Patient seen and examined at bedside. Pain is slightly worse than before procedure. He reports that he has been on disability in the past but started working again to support his daughter. Denies any chest pain or shortness of breath. Relates that he is being worked up to get on Medicaid. Given a note for work. Vital signs reviewed and stable. General: non toxic, no distress, appears at stated age Derm: warm, dry Head: atraumatic, normocephalic, symmetric Eyes: EOMI, no lid lag, anicteric sclera Mouth: no lip lesion, mucus membranes moist Cardiovascular: S1S2 reg, no murmur, positive posterior tibial pulse bilateral, Lungs: CTA bilateral, no rhonchi, no rales , no accessory muscle use Abdominal: soft, nontender to palpation, no guarding, no appreciable organomegaly Ext: no gross muscle atrophy, no edema, no contractures Neuro: CN II-XI grossly intact, no focal neuro deficits Psych: Alert, oriented, appropriate affect A total of 25 minutes of time were spent preparing this complex discharge summary . Patient Condition at Discharge: Stable Plan - Discharge Summary New Discharge Prescriptions: New Aspirin 81 mg PO DAILY #30 tab HYDROcodone/APAP 5-325MG [[place] 5-325] 1 each PO Q6HR PRN #42 tab PRN Reason: Pain Continue methocarbamoL [Robaxin] 500 mg PO Q12H PRN PRN Reason: Pain Naproxen 500 mg PO Q12H PRN PRN Reason: Pain Discontinued methylPREDNISolone [Medrol Dose Pack] See Taper PO DAILY Discharge Medication List Naproxen 500 mg PO Q12H PRN 01/24/21 [History] methocarbamoL [Robaxin] 500 mg PO Q12H PRN 01/24/21 [History] Aspirin 81 mg PO DAILY #30 tab 01/26/21 [Rx] HYDROcodone/APAP 5-325MG [[place] 5-325] 1 each PO Q6HR PRN #42 tab 01/26/21 [Rx] Follow up Appointment(s)/Referral(s): Bryce Box PAC [PHYSICIAN PEARL CUTTER] - As Needed (Patient may follow-up with Bryce Box PA-C or Dr. Giuseppe Pierson at [facility] on an as needed basis following discharge. ) [facility] [NON-STAFF] - 02/09/21 1:45 pm None,Stated [Primary Care Provider] - 1-2 days Rolando Recinos MD [STAFF PHYSICIAN] - 1 Week (Stress test outpatient. Office will call with appointment date and time) Patient Instructions/Handouts: Chest Pain (ED), How to Stop Smoking (DC), Back Pain (GEN) Discharge/Stand Alone Forms: Anes Pain/[place] Instructions, Work/Release Restrictions Form Discharge Disposition: HOME SELF-CARE
== END 2021-01-26 15:08 | disposition home or self-care (01) ==
LOC: EC 12:26 → 6NMEDSUR 14:24
PROVIDERS: ADMIT Internal Medicine; ATTEND Internal Medicine
DX: S39.012A Strain of muscle, fascia and tendon of lower back, initial encounter (principal); M96.1 Postlaminectomy syndrome, not elsewhere classified; M47.26 Other spondylosis with radiculopathy, lumbar region; M51.16 Intervertebral disc disorders with radiculopathy, lumbar region; M43.16 Spondylolisthesis, lumbar region; R07.89 Other chest pain; D68.51 Activated protein C resistance; Z98.1 Arthrodesis status; X50.1XXA Overexertion from prolonged static or awkward postures, initial encounter; Y99.0 Civilian activity done for income or pay; M21.962 Unspecified acquired deformity of left lower leg; G89.29 Other chronic pain; E66.9 Obesity, unspecified; Z68.30 Body mass index [BMI] 30.0-30.9, adult; Z79.899 Other long term (current) drug therapy; Z87.891 Personal history of nicotine dependence; Z91.14 Patient's other noncompliance with medication regimen; Z98.890 Other specified postprocedural states; Z80.8 Family history of malignant neoplasm of other organs or systems; Z82.49 Family history of ischemic heart disease and other diseases of the circulatory system
CPT/HCPCS: 96376 ×4; 96374; 96375; 99285; 51798; 36415; 93306; 80053; 84484; 85025; 85730; 81003; 72148; 62264; G0378 ×3; J2270; J1100; J3360; J1885; J1170 ×3; C1894; 99152

== ENCOUNTER 2021-03-24 20:56 | Observation (INO) | payer MEDICARE, OTHER ==
[2021-03-24] MEDS ORDERED: SODIUM CHLORIDE 0.9% 1,000 ML IV STA (21:05)
[2021-03-24] MEDS ORDERED: RX INFO: IV CONTRAST WAS GIVEN 1 EACH MISC MISCELLANE PRN (21:05)
[2021-03-24 21:27] LABS: Basophils # (A) 0.1 k/uL (0-0.2); Basophils % (A) 1 %; Eosinophils # (A) 0.2 k/uL (0-0.7); Eosinophils % (A) 2 %; HCT 43.7 % (39.0-53.0); HGB 14.7 gm/dL (13.0-17.5); Lymphocytes % (A) 24 %; MCH 31.7 pg (25.0-35.0); MCHC 33.7 g/dL (31.0-37.0); Mean Platelet Volume 7.4; Monocytes # (A) 0.7 k/uL (0-1.0); Monocytes % (A) 6 %; Neutrophils # (A) 8.2 k/uL (1.3-7.7); Neutrophils % (A) 66 %; Platelet Count 324 k/uL (150-450); RBC 4.65 m/uL (4.30-5.90); RDW 13.2 % (11.5-15.5); WBC 12.4 k/uL (3.8-10.6)
[2021-03-24 21:33] LABS: INR 0.9 (<1.2); Partial Thromboplastin Time 23.8 sec (22.0-30.0); Prothrombin Time 10.2 sec (9.0-12.0)
--- NOTE | 2021-03-24 21:33 | ED ---
General Adult HPI - General Chief complaint: Neuro Symptoms/Deficit Stated complaint: Chest Pain Time Seen by Provider: 03/24/21 21:02 Source: patient, EMS Mode of arrival: EMS - History of Present Illness Initial comments: Patient presents to the ED by ambulance for evaluation. Patient states that he developed left facial and left arm numbness and tingling at about 1930 this e vening. Patient states that he also developed left-sided chest tightness at that time. Patient states that he has a history of factor V Leiden deficiency, and he states that he is supposed to be taking Xarelto, but he has not been taking it for a long time now. Patient took aspirin 81 mg PO 4 prior to EMS arrival. Patient was given nitroglycerin sublingual 1 by EMS. Patient states that his chest tightness has now improved. Patient denies fever or chills, headache, neck/back pain, extremity pain, focal weakness, visual changes, speech difficulty, neck/arm/jaw pain, pleuritic pain, dyspnea, cough or cold symptoms, palpitations, dizziness, nausea/vomiting/diaphoresis, abdominal pain, dysuria or urinary symptoms, leg or calf swelling or pain, or any other symptoms or complaints. Code stroke was activated on patient's arrival to the ED. - Related Data Home Medications Medication Instructions Recorded Confirmed DULoxetine HCL [Cymbalta] 60 mg PO DAILY 03/24/21 03/24/21 Melatonin 5 mg PO HS PRN 03/24/21 03/24/21 QUEtiapine FUMARATE [SEROquel] 75 mg PO HS 03/24/21 03/24/21 busPIRone HCL 15 mg PO BID PRN 03/24/21 03/24/21 Allergies Allergy/AdvReac Type Severity Reaction Status Date / Time No Known Allergies Allergy Verified 03/24/21 22:47 Review of Systems ROS Statement: Those systems with pertinent positive or pertinent negative responses have been documented in the HPI. ROS Other: All systems not noted in ROS Statement are negative. Past Medical History Additional Past Medical History / Comment(s): factor 5 - History of Any Multi-Drug Resistant Organisms: None Reported Past Surgical History: Hernia Repair Additional Past Surgical History / Comment(s): back surgery 2010, left knee surgery. Past Anesthesia/Blood Transfusion Reactions: No Reported Reaction Past Psychological History: Anxiety, Depression Smoking Status: Former smoker Past Alcohol Use History: None Reported Past Drug Use History: Marijuana - Past Family History Mother Family Medical History: Cancer Additional Family Medical History / Comment(s): throat cancer Father Family Medical History: Cancer Additional Family Medical History / Comment(s): throat cancer General Exam Limitations: no limitations General appearance: alert, in no apparent distress Head exam: Present: atraumatic, normocephalic Eye exam: Present: normal appearance, PERRL, EOMI ENT exam: Present: mucous membranes moist, TM's normal bilaterally Neck exam: Present: other (Trachea is in midline). Absent: tenderness, meningismus Respiratory exam: Present: normal lung sounds bilaterally. Absent: respiratory distress, wheezes, rales, rhonchi, stridor Cardiovascular Exam: Present: regular rate, normal rhythm, normal heart sounds, other (Normal radial pulses bilaterally) GI/Abdominal exam: Present: soft. Absent: distended, tenderness, guarding Extremities exam: Present: full ROM, other (Negative Homans sign bilaterally). Absent: tenderness, pedal edema, calf tenderness Back exam: Absent: tenderness Neurological exam: Present: alert, oriented X3, other (Decreased sensation to light touch along the entire left side of face and left upper extremity; cranial nerves are otherwise intact; 5 out of 5 strength in all 4 extremities; left upper extremity drift; NIH stroke scale score = 2) Psychiatric exam: Present: normal affect, normal mood Skin exam: Present: warm, dry, intact, normal color Course Vital Signs 03/24/21 03/24/21 03/24/21 21:15 21:23 21:25 Temperature 97.8 F Pulse Rate 67 68 66 Respiratory 19 20 19 Rate Blood Pressure 154/104 151/103 159/99 O2 Sat by Pulse 97 98 98 Oximetry 03/24/21 03/24/21 21:30 21:45 Temperature 97.7 F Pulse Rate 73 64 Respiratory 19 15 Rate Blood Pressure 162/90 158/93 O2 Sat by Pulse 98 98 Oximetry - Reevaluation(s) Reevaluation #1: 03/24/21 21:30 Case, H&P, EMS/home management and pending ED workup were discussed with Dr. Pelayo (neurointensivist). He agrees with pending ED workup. He does not feel that the patient is a TPA candidate given his low NIHSS score and neurological deficits. He states that he will follow-up on the patient's imaging studies. He recommends hospital admission for neurology consultation and medical management. He has no further recommendations at this time. 03/24/21 22:51 Case, H&P, test results, EMS/home management and my discussion with Dr. Pelayo as as above were discussed with Dr. Franklin. She accepts hospital admission. She agrees with neurology consultation. She has no further recommendations at this time. 03/24/21 22:58 Patient denies development of any new symptoms while in the ED. Patient's neur ological exam is unchanged. Patient remains alert and breathing comfortably with a normal room air oxygen saturation. Patient is aware of his test results and my discussions as above. Patient agrees with hospital admission at this time. EKG Findings - EKG Comments: EKG Findings:: Normal sinus rhythm, ventricular rate of 61 bpm, no ectopy, normal ND and QRS intervals, normal QT interval, normal axis, no ST or T-wave abnormality Medical Decision Making - Medical Decision Making Patient's EKG is unremarkable. Patient's troponin is negative. Patient's d- dimer is also negative. Patient's noncontrast head CT and CT angiogram head/neck are all negative as well. Patient has a NIH stroke scale score of 2. Dr. Pelayo (neurointensivist) was consulted, and he does not feel that the patient is a TPA candidate given his low NIH stroke scale score/neurological deficits. Will admit the patient to the hospital for neurology consultation and medical management. Dr. Franklin has accepted hospital admission. - Lab Data Result diagrams: 03/24/21 21:00 03/24/21 22:15 Lab Results 03/24/21 03/24/21 03/24/21 Range/Units 21:00 21:00 21:00 WBC 12.4 H (3.8-10.6) k/uL RBC 4.65 (4.30-5.90) m/uL Hgb 14.7 (13.0-17.5) gm/dL Hct 43.7 (39.0-53.0) % MCV 94.0 (80.0-100.0) fL MCH 31.7 (25.0-35.0) pg MCHC 33.7 (31.0-37.0) g/dL RDW 13.2 (11.5-15.5) % Plt Count 324 (150-450) k/uL MPV 7.4 Neutrophils % 66 % Lymphocytes % 24 % Monocytes % 6 % Eosinophils % 2 % Basophils % 1 % Neutrophils # 8.2 H (1.3-7.7) k/uL Lymphocytes # 3.0 (1.0-4.8) k/uL Monocytes # 0.7 (0-1.0) k/uL Eosinophils # 0.2 (0-0.7) k/uL Basophils # 0.1 (0-0.2) k/uL PT 10.2 (9.0-12.0) sec INR 0.9 (<1.2) APTT 23.8 (22.0-30.0) sec D-Dimer (<0.60) mg/L FEU Sodium (137-145) mmol/L Potassium (3.5-5.1) mmol/L Chloride (98-107) mmol/L Carbon Dioxide (22-30) mmol/L Anion Gap mmol/L BUN (9-20) mg/dL Creatinine (0.66-1.25) mg/dL Est GFR (CKD-EPI)AfAm (>60 ml/min/1.73 sqM) Est GFR (CKD-EPI)NonAf (>60 ml/min/1.73 sqM) Glucose (74-99) mg/dL Calcium (8.4-10.2) mg/dL Magnesium (1.6-2.3) mg/dL Total Bilirubin (0.2-1.3) mg/dL AST (17-59) U/L ALT (4-49) U/L Alkaline Phosphatase (38-126) U/L Troponin I 0.018 (0.000-0.034) ng/mL NT-Pro-B Natriuret Pep pg/mL Total Protein (6.3-8.2) g/dL Albumin (3.5-5.0) g/dL 03/24/21 03/24/21 03/24/21 Range/Units 21:00 21:00 22:15 WBC (3.8-10.6) k/uL RBC (4.30-5.90) m/uL Hgb (13.0-17.5) gm/dL Hct (39.0-53.0) % MCV (80.0-100.0) fL MCH (25.0-35.0) pg MCHC (31.0-37.0) g/dL RDW (11.5-15.5) % Plt Count (150-450) k/uL MPV Neutrophils % % Lymphocytes % % Monocytes % % Eosinophils % % Basophils % % Neutrophils # (1.3-7.7) k/uL Lymphocytes # (1.0-4.8) k/uL Monocytes # (0-1.0) k/uL Eosinophils # (0-0.7) k/uL Basophils # (0-0.2) k/uL PT (9.0-12.0) sec INR (<1.2) APTT (22.0-30.0) sec D-Dimer 0.24 (<0.60) mg/L FEU Sodium 136 L (137-145) mmol/L Potassium 4.1 (3.5-5.1) mmol/L Chloride 103 (98-107) mmol/L Carbon Dioxide 22 (22-30) mmol/L Anion Gap 11 mmol/L BUN 12 (9-20) mg/dL Creatinine 0.81 (0.66-1.25) mg/dL Est GFR (CKD-EPI)AfAm >90 (>60 ml/min/1.73 sqM) Est GFR (CKD-EPI)NonAf >90 (>60 ml/min/1.73 sqM) Glucose 92 (74-99) mg/dL Calcium 8.9 (8.4-10.2) mg/dL Magnesium 1.9 (1.6-2.3) mg/dL Total Bilirubin 0.5 (0.2-1.3) mg/dL AST 28 (17-59) U/L ALT 28 (4-49) U/L Alkaline Phosphatase 49 (38-126) U/L Troponin I (0.000-0.034) ng/mL NT-Pro-B Natriuret Pep 18 pg/mL Total Protein 6.7 (6.3-8.2) g/dL Albumin 3.9 (3.5-5.0) g/dL - Radiology Data Radiology results: report reviewed (Chest x-ray: Normal chest.) Noncontrast head CT: Negative unenhanced head CT scan. CT angiography head/neck with IV contrast: Negative CT angiogram of the neck. Negative CT angiogram of the brain. Disposition Clinical Impression: Chest pain, Paresthesias Disposition: ADMITTED IP TO THIS HOSP Condition: Stable Is patient prescribed a controlled substance at d/c from ED?: No Referrals: None,Stated [Primary Care Provider] - 1-2 days Time of Disposition: 22:51
--- NOTE | 2021-03-24 21:50 | XR ---
EXAMINATION TYPE: XR chest 1V portable DATE OF EXAM: 03/24/2021 COMPARISON: NONE HISTORY: Altered mental status TECHNIQUE: Single view FINDINGS: Heart and mediastinum are normal. Lungs are clear. Diaphragm is normal. Bony thorax is inta ct. IMPRESSION: Normal chest.
--- NOTE | 2021-03-24 21:53 | CT ---
EXAMINATION TYPE: CT brain wo con for TPA DATE OF EXAM: 03/24/2021 COMPARISON: None HISTORY: neuro deficits, code stroke CT DLP: 1113.8 mGycm Automated exposure control for dose reduction was used. Ventricles have normal size. There is no mass effect nor midline shift. There is no sign of intracran ial hemorrhage. There is no evidence of cerebral edema. Calvarium is intact. IMPRESSION: Negative unenhanced head CT scan.
--- NOTE | 2021-03-24 22:27 | CT ---
EXAMINATION TYPE: CT angio head neck DATE OF EXAM: 03/24/2021 COMPARISON: None HISTORY: Neuro deficits, code stroke CT DLP: 821.8 mGycm Automated exposure control for dose reduction was used. CONTRAST: Performed with IV Contrast, patient injected with 65 mL of Isovue 370. Images obtained from the aortic arch to the vertex of the brain with IV contrast. There are 3-D post processed images. There is normal branching pattern of the great vessels on the aortic arch. There is bilateral arteria l flow in the subclavian arteries. There is arterial flow in the common internal and external carotid arteries bilaterally. There is arterial flow in both vertebral arteries. There is wide patency of th e carotid artery bifurcations. There is arterial flow in the vertebrobasilar artery system. There is no evidence of carotid or vertebral artery aneurysm or dissection. There is arterial flow in the anterior middle and posterior cerebral arteries. There is no mass effec t. There is no sign of intracranial aneurysm or neovascularity. There is normal enhancement of the ve nous sinuses. There is no evidence of intracranial arterial stenosis. IMPRESSION: Negative CT angiogram of the neck. Negative CT angiogram of the brain.
[2021-03-24 22:43] LABS: Potassium 4.1 mmol/L (3.5-5.1)
[2021-03-24 22:46] LABS: ALT 28 U/L (4-49); AST 28 U/L (17-59); African American GFR (CKD) >90 (>60 ml/min/1.73 sqM); Albumin 3.9 g/dL (3.5-5.0); Alkaline Phosphatase 49 U/L (38-126); Anion Gap 11 mmol/L; Blood Urea Nitrogen 12 mg/dL (9-20); Calcium 8.9 mg/dL (8.4-10.2); Carbon Dioxide 22 mmol/L (22-30); Chloride 103 mmol/L (98-107); Glucose 92 mg/dL (74-99); Magnesium 1.9 mg/dL (1.6-2.3); Non-African American GFR(CKD) >90 (>60 ml/min/1.73 sqM); Sodium 136 mmol/L (137-145); Total Bilirubin 0.5 mg/dL (0.2-1.3); Total Protein 6.7 g/dL (6.3-8.2)
[2021-03-24] MEDS ORDERED: busPIRone HCl 5 MG TAB PO PRN (23:00)
[2021-03-24] MEDS ORDERED: methylPREDNISolone SOD SUCCI 125 MG/2 ML VIAL IV STA (23:37)
[2021-03-24] MEDS ORDERED: IBUPROFEN 600 MG TAB PO PRN (23:38)
[2021-03-24] MEDS ORDERED: HYDROcodone/APAP 5-325MG 1 EACH TAB PO PRN (23:38)
[2021-03-24] MEDS ORDERED: NALOXONE 0.4 MG/ML 1 ML VIAL IV PRN (23:39)
[2021-03-24] MEDS ORDERED: ONDANSETRON 4 MG/2 ML VIAL IVP PRN (23:39)
[2021-03-24 23:58] VITALS: RESP 18
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
[2021-03-25] MEDS ORDERED: MELATONIN 3 MG TABLET PO PRN
[2021-03-25] MEDS ORDERED: CYCLOBENZAPRINE 5 MG TAB PO PRN
[2021-03-25] MEDS ORDERED: QUEtiapine 25 MG TAB PO SCH ×2 (01:00→21:00)
[2021-03-25 02:54] LABS: Basophils % (A) 1 %; Eosinophils # (A) 0.2 k/uL (0-0.7); Eosinophils % (A) 2 %; HCT 42.7 % (39.0-53.0); Lymphocytes # (A) 1.9 k/uL (1.0-4.8); Lymphocytes % (A) 21 %; MCH 30.9 pg (25.0-35.0); MCHC 32.9 g/dL (31.0-37.0); MCV 93.9 fL (80.0-100.0); Mean Platelet Volume 7.2; Monocytes # (A) 0.4 k/uL (0-1.0); Monocytes % (A) 4 %; Neutrophils # (A) 6.7 k/uL (1.3-7.7); Neutrophils % (A) 72 %; Platelet Count 289 k/uL (150-450); RBC 4.54 m/uL (4.30-5.90); RDW 13.1 % (11.5-15.5); WBC 9.3 k/uL (3.8-10.6)
[2021-03-25 03:13] LABS: ALT 29 U/L (4-49); AST 36 U/L (17-59); African American GFR (CKD) >90 (>60 ml/min/1.73 sqM); Albumin 4.1 g/dL (3.5-5.0); Alkaline Phosphatase 46 U/L (38-126); Anion Gap 8 mmol/L; Blood Urea Nitrogen 12 mg/dL (9-20); Carbon Dioxide 25 mmol/L (22-30); Chloride 104 mmol/L (98-107); Glucose 110 mg/dL (74-99); Non-African American GFR(CKD) >90 (>60 ml/min/1.73 sqM); Potassium 4.3 mmol/L (3.5-5.1); Sodium 137 mmol/L (137-145); Total Bilirubin 0.8 mg/dL (0.2-1.3); Total Protein 6.9 g/dL (6.3-8.2)
[2021-03-25 07:53] VITALS: BP 113/68; PULSE 72; TEMP 98.1
[2021-03-25] MEDS ORDERED: predniSONE 20 MG TAB PO SCH (09:00)
[2021-03-25] MEDS ORDERED: ENOXAPARIN 40 MG/0.4 ML SYRINGE SQ SCH (09:00)
[2021-03-25] MEDS ORDERED: DULoxetine HCL 60 MG CAPSULE.DR PO SCH (09:00)
[2021-03-25] MEDS ORDERED: ASPIRIN 81 MG PO SCH (09:00)
[2021-03-25] MEDS ORDERED: bisacodyL 5 MG TABLET.DR PO PRN (09:00)
[2021-03-25] MEDS ORDERED: ATORVASTATIN 40 MG TAB PO SCH (09:00)
[2021-03-25 09:23] LABS: Chol/HDL Ratio 3.02 Ratio; LDL Cholesterol,Calculated 97.3 mg/dL (0.0-131.0)
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
--- NOTE | 2021-03-25 11:27 | CONS ---
CONSULTATION Please refer to the detailed consultation by Dr. Recinos in December of this year. This gentleman comes into the hospital with complaints of some left-sided sharp pains and also a tingling feeling. There was a question of TIA and also chest pain and therefore I was asked to see him. On questioning, he is asymptomatic at this time. However, when he came into the emergency room last night, he complained of a tingling feeling started at about 7:30 also developed some tightness on the left side of left lateral aspect of the chest that lasted on and off. He gives a history of factor 5 Leiden but has not been any anticoagulation and does not have the money to buy medications. However, he does use marijuana on a regular basis. He has no chest pain, shortness of breath or palpitation at the time of my evaluation. CT scan and CT angiogram did not reveal any significant abnormalities. Specifically, there is no evidence to suggest any vessel occlusion or stenosis. PAST MEDICAL HISTORY: Hospitalization with atypical chest pain in December, but was advised to have a stress test which he did not have and did not follow through because he tells me he has no insurance. He also has history of question of factor 5 Leiden details unclear. He has history of previous hernia surgery. He has no allergies. He does not take any medications. He was supposed to be on Cymbalta and atorvastatin, but he has not taken these medicines on a regular basis. PHYSICAL EXAMINATION: On examination, blood pressure is 118/70, pulse rate is 70 per minute, irregular. HEENT unremarkable. Fundus was not examined by me. NECK is supple. No JVD. I do not hear a carotid bruit. There is no thyromegaly. HEART exam reveals S1, S2 heard normally in all areas. No rub, murmur or gallop. LUNGS are clear. Abdomen is soft, nontender. Lower EXTREMITIES reveal normal pulses. No edema. CENTRAL NERVOUS SYSTEM is normal. EKG revealed sinus mechanism, no acute changes. IMPRESSION: 1. Atypical chest pain. 2. Questionable transient ischemic attack. 3. History of factor 5 Leiden, details unclear. RECOMMENDATIONS: I would recommend that no investigation is necessary from a cardiac standpoint at this time. I would suggest outpatient stress test to be performed. The patient's neurologist will make further recommendations. He may benefit from evaluation by production cloth cutter determine if he really has a factor 5 Leiden or not. Blood pressure control is optimal. He is currently on atorvastatin and also aspirin and subcu heparin/Lovenox. We will continue the same. Upon followup is advised to follow up with Dr. Recinos or his PCP can set up a stress test here in the hospital as an outpatient. We will see him as needed. Thank you very much for the consult. ROSALIO / IJN: [id number] /
--- NOTE | 2021-03-25 11:48 | P.DS ---
Providers Date of admission: 03/24/21 22:51 Attending physician: Adriana Franklin DO Consults: 03/24/21 22:52 Consult Physician Urgent Consulting Provider: Gilberto Covington Consult Reason/Comments: Left-sided paresthesias, possible TIA Do you want consulting provider notified?: Yes 03/24/21 23:58 Consult Physician Routine Consulting Provider: Rolando Recinos Consult Reason/Comments: chest pain Do you want consulting provider notified?: Yes, Notify in am Primary care physician: Stated None Hospital Course: 46-year-old male with factor V Leiden, history of tobacco abuse, and osteoarthritis who presented due to left facial and arm numbness and chest tightness. Recently here with complaints of back and chest pain discharged on 01/26.echo at that time revealed EF of 55-60%. He was seen by cardiology who recommended outpatient stress test. He was also seen by pain management and diagnosed with lumbar postlaminectomy syndrome with lumbar radiculopathy and underwent steroid injection with epidural lysis an epidurogram. He states that he went to visit his grandkids and then was sitting at home when he developed left upper chest pain. He states he had some tingling down into his left arm and up into his left jaw associated with shortness of breath, lightheadedness, dizziness, nausea, and elevated blood pressure. He states the pain in his chest is gone but he continues to have some tingling in his left arm. The tingling in his left jaw has dissipated as well. He denies any recent cough, cold, fever, flu. He states he had a similar episode when he was in his 20s was diagnosed with some sort of heart condition but he is unsure what. He states that his blood pressure has been good at home until he had pain today and then his blood pressure was elevated. In the ER code stroke was activated. Initial vital signs showed hypertension with a blood pressure of 154/104. Initial labs showed a white blood cell count of 12.4 but were otherwise unremarkable. CT head showed no acute process. Chest x-ray showed no acute process. CT angiogram of the head and neck showed no definitive abnormalities. He had taken a dose of aspirin prior to admission. EKG is reviewed by myself reveals normal sinus rhythm at a rate of 61, normal intervals, normal axis and no ST segment abnormalities. Initial troponin was negative. NIH stroke scale was 2 and stroke network recommended against TPA. Patient was admitted, was evaluated by cardiology and neurology services. Troponin was cycled and NE was ruled out. Neurology recommended MRI of the brain and neck which can be done on an outpatient. Cardiology also recommended stress testing for outpatient. Patient will need follow-up with cardiology and neurology in the offices. Patient is agreeable to the plan. He will be discharged home in stable condition. Patient Condition at Discharge: Stable Plan - Discharge Summary Discharge Rx Participant: No New Discharge Prescriptions: Continue busPIRone HCL 15 mg PO BID PRN PRN Reason: Anxiety DULoxetine HCL [Cymbalta] 60 mg PO DAILY QUEtiapine FUMARATE [SEROquel] 75 mg PO HS Melatonin 5 mg PO HS PRN PRN Reason: Insomnia Discharge Medication List DULoxetine HCL [Cymbalta] 60 mg PO DAILY 03/24/21 [History] Melatonin 5 mg PO HS PRN 03/24/21 [History] QUEtiapine FUMARATE [SEROquel] 75 mg PO HS 03/24/21 [History] busPIRone HCL 15 mg PO BID PRN 03/24/21 [History] Follow up Appointment(s)/Referral(s): None,Stated [Primary Care Provider] - 1-2 days
--- NOTE | 2021-03-25 15:47 | CT ---
EXAMINATION TYPE: CT cervical spine w con DATE OF EXAM: 03/25/2021 COMPARISON: CTA performed the day before HISTORY: 46-year-old male neck pain with numbness over left arm TECHNIQUE: Axial, coronal, and sagittal reconstructions generated from CTA head and neck performed . CT DLP: See previous CTA exam. Automated exposure control for dose reduction was used. FINDINGS: No craniocervical junction abnormalities, predental space widening, or prevertebral soft tissue swell ing. Scattered mild degenerative disc disease, more moderate C5-C6. Disc osteophytic complex tear may cont ribute to a mild spinal canal stenosis. Assessment of the spinal canal from C5 and below is limited d ue to artifact from the patient's shoulders. Reversal of the normal cervical lordosis but with preserved alignment. No acute fracture of the cervical spine. Scattered mild facet and uncovertebral joint arthropathy. At C3-C4 and C4-C5, mild left neural foraminal narrowing. At C5-C6, there is mild to moderate left and mild right neuroforaminal narrowing. At C6-C7, mild left neuroforaminal narrowing. Visualized upper abdomen shows mild peribronchial cuffing and some dependent atelectasis. Asymmetric soft tissue effacing the posterior left oropharyngeal space, reference axial image 13. IMPRESSION: 1. MILD MULTILEVEL SPONDYLOTIC CHANGE. REVERSAL OF THE NORMAL CERVICAL LORDOSIS COULD BE POSITIONAL O R DUE TO MUSCLE SPASM. NO MALALIGNMENT. 2. DISC OSTEOPHYTE COMPLEX AT C5-C6 MAY CONTRIBUTE TO A MILD SPINAL CANAL STENOSIS. 3. THERE IS NO MILD NEUROFORAMINAL STENOSES, MILD MORE MILD TO MODERATE AT SOME LEVELS ON THE LEFT OUTLINED ABOVE. 4. ASYMMETRIC SOFT TISSUE EFFACING THE LEFT POSTERIOR OROPHARYNGEAL SPACE. FINDINGS MAY BE RELATED TO TONGUE POSITION. RECOMMEND DIRECT VISUALIZATION TO EXCLUDE A MUCOSAL LESION/MASS.
== END 2021-03-25 14:00 | disposition home or self-care (01) ==
LOC: EC 20:56 → 6NMEDSUR 22:51 → 3SCARD 22:51 → UNDOADMIN 22:51 → 6NMEDSUR 23:15
PROVIDERS: ADMIT Internal Medicine; ATTEND Internal Medicine
DX: R07.89 Other chest pain (principal); R20.2 Paresthesia of skin; R20.0 Anesthesia of skin; R06.02 Shortness of breath; R42 Dizziness and giddiness; R53.1 Weakness; R11.0 Nausea; M54.2 Cervicalgia; D68.51 Activated protein C resistance; M19.90 Unspecified osteoarthritis, unspecified site; I10 Essential (primary) hypertension; F32.A Depression, unspecified; F41.9 Anxiety disorder, unspecified; M96.1 Postlaminectomy syndrome, not elsewhere classified; M54.16 Radiculopathy, lumbar region; T45.516A Underdosing of anticoagulants, initial encounter; Z91.128 Patient's intentional underdosing of medication regimen for other reason; M54.50 Low back pain, unspecified; F25.9 Schizoaffective disorder, unspecified; I49.1 Atrial premature depolarization; Z20.822 Contact with and (suspected) exposure to COVID-19; Z71.9 Counseling, unspecified; Z56.0 Unemployment, unspecified; Z87.891 Personal history of nicotine dependence; Z79.899 Other long term (current) drug therapy; Z98.1 Arthrodesis status; Z82.49 Family history of ischemic heart disease and other diseases of the circulatory system; Z80.8 Family history of malignant neoplasm of other organs or systems; Z82.3 Family history of stroke
CPT/HCPCS: 96372; 96374; 99285; 36415; 93005; 97161; 85379; 83880; 80061; 80053 ×2; 84443; 82607; 82746; 83735; 84484 ×2; 85025 ×2; 85610; 85730; 87635; 71045; 72126; 70496; 70450; 70498; G0378 ×2; J2930; J1650; J7512; Q9967

== ENCOUNTER → 2021-06-21 | Outpatient (CLI) | payer MEDICARE, OTHER ==
--- NOTE | 2021-06-22 05:05 | MR ---
EXAMINATION TYPE: MR lumbar spine wo con DATE OF EXAM: 06/21/2021 COMPARISON: 01/24/2021 HISTORY: Low back pain into rt side buttocks/thigh Multiplanar multiecho imaging of the lumbar spine without contrast. There is metal artifact from posterior fusion surgery at L5-S1. There is a 6 mm first-degree L5-S1 sp ondylolisthesis. There is narrowing of the L5-S1 disc space with apparent metal disc prosthesis. Ther e is also some narrowing of the L2-3 disc space. No compression deformity. No evidence of focal bone destruction. The lumbar neural foramina are fairly well-maintained. There is a small posterior disc b ulge at L2-3. There are small anterior disc herniation at L2-3. No spinal stenosis. No evidence of mary mbar paraspinal mass. The visualized sacroiliac joints are intact. IMPRESSION: There is a mild first-degree L5-S1 spondylolisthesis that appears fairly stable compared to old exam. No acute bony abnormality. No spinal stenosis.
== END | disposition home or self-care (01) ==
LOC: RADMRIMAIN 11:18
PROVIDERS: ATTEND Nurse Practitioner Family
DX: M43.17 Spondylolisthesis, lumbosacral region (principal)
CPT/HCPCS: 72148